=== PATIENT | male | born 1975 | race Caucasian/White ===

== ENCOUNTER 2017-03-20 11:13 | Emergency (ER) | payer SELFPAY ==
[~2017-03-20] VITALS: Ht 172.7 cm; Wt 80.1 kg
[2017-03-20 11:21] VITALS: BP 113/76; PULSE 84; RESP 16; TEMP 98.6; O2SAT 98
[2017-03-20] MEDS ORDERED: LIDOCAINE HCL 1% PF 30 ML VIAL INFIL ONE (13:00)
--- NOTE | 2017-03-20 13:44 | PD ---
HPI Chief Complaint: Laceration/Skin Injury Time Seen by Provider: 12:10 Travel History International Travel<30 days: No Contact w/Intl Traveler<30days: No Traveled to known affect area: No History of Present Illness HPI 41-year-old male presents to the emergency room for evaluation of laceration to his right medial knee that occurred just prior to arrival. Patient was using a drawing box tender to slice something up and when he slipped and sliced his knee. States the bleeding was. New. Last tetanus was 3 years ago. Reports extreme pain. Denies distal paresthesias. He has been ambulatory since onset. Patient applied pressure and came straight to the emergency room. PFSH Past Medical History Medical History: Denies Significant Hx Hx Anticoagulant Therapy: No Diminished Hearing: No Musculoskeletal: Yes (PREVIOUS LOW BACK PAIN) Immunizations Current: No Past Surgical History Abdominal Surgery: Yes (HERNIA REPAIR) Other Surgery: Yes (LEFT HERNIA REPAIR) Social History Alcohol Use: Yes (RARE) Tobacco Use: Yes (I PPD) Substance Use: No Allergies-Medications (Allergen,Severity, Reaction): Coded Allergies: No Known Allergies (Verified , 03/20/17) Reported Meds & Prescriptions Reported Meds & Active Scripts Active Ibuprofen 600 Mg Tab 600 Mg PO Q8HR PRN Review of Systems Except as stated in HPI: all other systems reviewed are Neg Physical Exam Narrative GENERAL: Well-nourished, well-developed male in no acute distress. Afebrile. Ambulatory. SKIN: Focused skin assessment warm/dry. There is a 4 cm superficial laceration to the right medial knee. HEAD: Normocephalic. EYES: No scleral icterus. No injection or drainage. NECK: Supple, trachea midline. No JVD or lymphadenopathy. CARDIOVASCULAR: Regular rate and rhythm without murmurs, gallops, or rubs. RESPIRATORY: Breath sounds equal bilaterally. No accessory muscle use. EXTREMITY: Full range of motion of the right lower extremity. Data Data Last Documented VS Vital Signs Date Time Temp Pulse Resp B/P Pulse Ox O2 Delivery O2 Flow Rate FiO2 03/20/17 11:21 98.6 84 16 113/76 98 Orders Lidocaine Pf 1% Inj (Xylocaine-Mpf 1% In (03/20/17 13:00) MDM Medical Decision Making Medical Screen Exam Complete: Yes Emergency Medical Condition: Yes Medical Record Reviewed: Yes Differential Diagnosis Laceration, abrasion, contusion, strain, skin tear Narrative Course 41-year-old male presents to the emergency room for evaluation of a laceration to his right medial knee that occurred just prior to arrival. Patient cut himself with a drawing box tender. Tetanus is up-to-date. Physical exam reveals a well approximated, superficial laceration. Laceration was repaired, see procedure note for details. Patient discharged with wound care instructions and told to follow up with a primary care physician or return for worsening symptoms. He understands and agrees to plan. Procedures Procedure Narrative LACERATION LOCATION: Right medial knee LENGTH: 4 cm NUMBER OF STITCHES/OLEG: 5 simple interrupted REPAIR: The area of the laceration was prepped with Betadine and sterilely draped. The laceration was infiltrated with 1% lidocaine. The wound was copiously irrigated and explored without evidence of foreign body, tendon injury or neurovascular injury. The wound was closed using 4-0 Prolene. This was a single layer repair. A sterile dressing was applied. The patient was advised to keep the dressing clean and dry. Patient tolerated the procedure well. Diagnosis Primary Impression: Laceration of right knee Qualified Code: S81.011A - Laceration of right knee, initial encounter Referrals: Primary Care Physician Patient Instructions: General Instructions, Laceration (ED) Additional Instructions: Rest and drink plenty of fluids. Keep wound clean and dry. Stitches out in 14 days. Take ibuprofen with food as directed, as needed for pain. Apply ice to the affected area for 20 minutes at a time, as needed for pain and swelling. Follow-up with a primary care physician. Return to the emergency room for worsening symptoms. Med/Other Pt SpecificInfo: Prescription(s) given Scripts Ibuprofen 600 Mg [id number] Mg PO Q8HR PRN (PAIN) #21 TAB Ref 0 Prov:Erlin Conti MD 03/20/17 Disposition: 01 DISCHARGE HOME Condition: Stable Violeta Daugherty Mar 20, 2017 13:44
[2017-03-20] MEDS ORDERED: IBUP-232 PO (13:45)
== END 2017-03-20 13:58 | disposition home or self-care (01) ==
LOC: PHEFT 11:13
DX: S81.011A Laceration without foreign body, right knee, initial encounter (principal); W26.8XXA Contact with other sharp object(s), not elsewhere classified, initial encounter; Y93.89 Activity, other specified
CPT/HCPCS: 12002